=== PATIENT | male | born 1935 | race Caucasian/White ===

== ENCOUNTER 2022-05-21 13:06 | Inpatient (IN) | payer MEDICARE ==
[~2022-05-21] VITALS: Ht 165.1 cm; Wt 89.9 kg
[~2022-05-21 13:06] MED LIST: CEFAZOLIN 1 G VIAL ONE; DEXAMETHASONE SOD PHOSPHATE 4 MG INJ ONE; EPHEDRINE SULFATE 50 MG/ML AMPUL ONE; ETOMIDATE 20 MG/10 ML VIAL ONE; GLYCOPYRROLATE 0.2 MG/ML VIAL ONE; KETOROLAC TROMETHAMINE 30 MG INJ ONE; LIDOCAINE-MPF 2% 5 ML VIAL ONE; NEOSTIGMINE METHYLSULFATE 10 MG/10 ML VIAL ONE; ONDANSETRON 4 MG/2 ML VIAL ONE; PROPOFOL 200 MG/20 ML BOTTLE ONE; SUCCINYLCHOLINE CHLORIDE 200 MG/10 ML VIAL ONE
[2022-05-21] MEDS ORDERED: ONDA4TAB5 PO (13:37)
[2022-05-21] MEDS ORDERED: SERT100T PO (13:37)
[2022-05-21] MEDS ORDERED: CHOL200013 PO (13:37)
[2022-05-21] MEDS ORDERED: VALS1TAB8 PO (13:37)
[2022-05-21] MEDS ORDERED: PANT40TA49 PO (13:37)
[2022-05-21] MEDS ORDERED: PRED1TAB PO (13:37)
[2022-05-21] MEDS ORDERED: APIX5TAB4 PO (13:37)
[2022-05-21] MEDS ORDERED: ZOLP5TAB8 PO (13:37)
[2022-05-21] MEDS ORDERED: ATOR20TA PO (13:37)
[2022-05-21] MEDS ORDERED: CARV25TA2 PO (13:37)
[2022-05-21] MEDS ORDERED: FURO20TA4 PO (13:37)
[2022-05-21] MEDS ORDERED: THIA100T13 PO (13:37)
[2022-05-21] MEDS ORDERED: AMLO10TA59 PO (13:37)
[2022-05-21] MEDS ORDERED: DICLOFENAC GEL TP (13:37)
[2022-05-21] MEDS ORDERED: MULT-213 PO (13:37)
[2022-05-21] MEDS ORDERED: GABA600T12 PO (13:37)
[2022-05-21] MEDS ORDERED: TRAM50TA2 PO (13:37)
[2022-05-21 13:57] LABS: HEMATOCRIT 37.4 % (36.7-47.1); MEAN CORPUSCULAR HEMOGLOBIN 32.6 uug (23.8-33.4); MEAN CORPUSCULAR VOLUME 96.2 fL (73.0-96.2); PLATELET COUNT (AUTO) 137 K/uL (152-348)
[2022-05-21 14:06] LABS: CREATININE 0.8 mg/dL (0.6-1.3)
--- NOTE | 2022-05-21 14:06 | NUR ---
PT IS IN ROOM #2B. DR BRYAN EVALUATED THE PT.
[2022-05-21 14:12] LABS: BILIRUBIN,DIRECT 0.2 mg/dL (0.0-0.2); BILIRUBIN,TOTAL 0.5 mg/dL (0.2-1.0); TOTAL PROTEIN, SERUM 6.3 g/dL (6.4-8.2)
[2022-05-21] MEDS ORDERED: HYDROMORPHONE 1 MG/1 ML DISP.SYRIN IV ONE (15:15)
[2022-05-21] MEDS ORDERED: diphenhydrAMINE 50 MG/1 ML VIAL IV ONE (15:15)
[2022-05-21] MEDS ORDERED: ONDANSETRON 4 MG/2 ML VIAL IV ONE (15:15)
[2022-05-21] MEDS ORDERED: ONDANSETRON 4 MG/2 ML VIAL IV PRN (15:30)
[2022-05-21] MEDS ORDERED: MORPHINE SULFATE 2 MG/1 ML DISP.SYRIN IV PRN (15:30)
[2022-05-21] MEDS ORDERED: REMEDY ESSENTIAL ZINC PASTE 113 GM TP PRN (15:30)
[2022-05-21] MEDS ORDERED: HYDROMORPHONE 1 MG/1 ML DISP.SYRIN ONE (15:38)
[2022-05-21] MEDS ORDERED: diphenhydrAMINE 50 MG/1 ML VIAL ONE (15:40)
[2022-05-21] MEDS ORDERED: ONDANSETRON 4 MG/2 ML VIAL ONE ×3 (15:40→21:01)
[2022-05-21] MEDS ORDERED: LORAZEPAM 2 MG/1 ML VIAL ONE (16:25)
[2022-05-21] MEDS ORDERED: LORAZEPAM 2 MG/1 ML VIAL IV ONE (16:30)
--- NOTE | 2022-05-21 19:30 | NUR ---
Report taken from Alexys. Pt is with Ana Lilia caregiver at the bedside. Airway is patent and speaking in full sentences. Breathing is non-labored. No active bleeding, no obvious cuts or bruising. GCS 15/15 at this time. CApp refill <2 secs. Good pulses on all exts. Skin is warm, pink and dry. PIV on the right upper arm flushed and intact.
[2022-05-21] MEDS ORDERED: VALS320T16 PO (20:47)
[2022-05-21] MEDS ORDERED: MORPHINE SULFATE 2 MG/1 ML DISP.SYRIN ONE (21:00)
[2022-05-21] MEDS ORDERED: MAGNESIUM HYDROXIDE 30 ML LIQUID UDC PO PRN (21:00)
--- NOTE | 2022-05-21 21:00 | NUR ---
Pt begins to be agitated. Medicated with morphine and zofran. Pt refuses skin check even after morphine administration.
[2022-05-21] MEDS: ATORVASTATIN 20 MG TABLET PO SCH (21:04)
[2022-05-22] MEDS ORDERED: ONDANSETRON 4 MG/2 ML VIAL ONE (00:51)
[2022-05-22] MEDS ORDERED: MORPHINE SULFATE 2 MG/1 ML DISP.SYRIN ONE (00:51)
--- NOTE | 2022-05-22 00:51 | NUR ---
late entry: Pt was given Morphine 2mg IVP. Pt is restless and shouting with a very loud voice disrupting the whole unit. Pt has fracture on the right hip. Zofran given as well to prevent vomiting. Remained on NPO for scheduled surgery at 0730 today.
--- NOTE | 2022-05-22 01:59 | NUR ---
Late entry: Asked Dr. Avina to add an additional pain coverage for breakthrough severe pain. Dilaudid 1 mg IVP was given. Pt able to sleep and woke up saying "I didn't know where I am." Kept on O2 support. Pt was snorring and O2 dropped to 90%. Saturation maintained at 93% at 3 LPM via N/C. Pt able to rest and now seem free of pain.
[2022-05-22] MEDS ORDERED: HYDROMORPHONE 1 MG/1 ML DISP.SYRIN ONE (02:09)
[2022-05-22] MEDS ORDERED: HYDROMORPHONE 1 MG/1 ML DISP.SYRIN IV PRN ×2 (02:15→06:45)
[2022-05-22] MEDS ORDERED: KETOROLAC TROMETHAMINE 15 MG INJ IVP ONE (02:15)
[2022-05-22 06:18] LABS: HEMATOCRIT 37.1 % (36.7-47.1); MEAN CORPUSCULAR HEMOGLOBIN 32.8 uug (23.8-33.4); MEAN CORPUSCULAR VOLUME 95.3 fL (73.0-96.2); PLATELET COUNT (AUTO) 131 K/uL (152-348)
--- NOTE | 2022-05-22 06:18 | NUR ---
Report given Betzy/ OR. Mentioned that the son want to get involved and the daughter. JOHNATHAN (SON) [phone] LARRY (DAUGHTER) [phone] Mentioned too that the pt's been taking Eloquis 5mg BID and possibly took a dose yesterday AM. Pt had a fall on their way home from the doctor's office.
[2022-05-22] MEDS ORDERED: BUPIVACAINE 0.25% 30 ML VIAL ONE (06:34)
[2022-05-22] MEDS ORDERED: VANCOMYCIN 1000 MG VIAL ONE (06:34)
--- NOTE | 2022-05-22 07:09 | NUR ---
Pt moved to OR. Endorsed to Betzy the sand pillow of the patient and upper dentures.
[2022-05-22 07:11] LABS: POTASSIUM 4.5 mmol/L (3.5-5.1)
[2022-05-22 07:12] LABS: CARBON DIOXIDE 30 mmol/L (21-32); CHLORIDE 91 mmol/L (98-107); GLUCOSE 106 mg/dL (74-106); UREA NITROGEN, BLOOD 12 mg/dL (7-18)
[2022-05-22 07:13] LABS: CHOLESTEROL 149 mg/dL (<200); CREATININE 0.6 mg/dL (0.6-1.3); MAGNESIUM 1.9 mg/dL (1.8-2.4); TRIGLYCERIDES 112 MG/DL (30-150)
[2022-05-22 07:14] LABS: HDL CHOLESTEROL 56 mg/dL (40-60)
[2022-05-22] MEDS ORDERED: HYDROMORPHONE 2 MG/1 ML DISP.SYRIN ONE (07:36)
[2022-05-22] MEDS ORDERED: ROCURONIUM BROMIDE 50 MG/5 ML VIAL ONE (08:06)
[2022-05-22] MEDS ORDERED: HYDROCHLOROTHIAZIDE 25 MG TABLET PO SCH (09:00)
[2022-05-22] MEDS ORDERED: Medication Not On Formulary EA (Multivitamins W-Minerals (Multivitamin With Minerals) 1 PO SCH (09:00)
[2022-05-22] MEDS ORDERED: Medication Not On Formulary EA (Valsartan/Hydrochlorothiazide (Diovan Hct 320-25 Mg Tabl PO SCH (09:00)
[2022-05-22] MEDS ORDERED: HYDROCODONE/APAP 10-325 MG TABLET PO PRN (10:00)
[2022-05-22] MEDS ORDERED: MORPHINE SULFATE 4 MG/1 ML DISP.SYRIN IV PRN (10:00)
[2022-05-22] MEDS ORDERED: IV D5W-0.45% NS +20 KCL 1,000 ML IV PRN (10:00)
--- NOTE | 2022-05-22 10:45 | NUR ---
[id number] pt from OR, vitals stable. Patient felt a little hot and in pain. Administered morphine. Daughter Ophelia is at bed side.
--- NOTE | 2022-05-22 12:00 | NUR ---
Patient is asleep. No distress no pain noted
[2022-05-22] MEDS: MULTIVIT, IRON, MIN NO. 8, FA TABLET PO SCH (14:07)
[2022-05-22] MEDS: THIAMINE HCL 100 MG TABLET PO SCH (14:07)
[2022-05-22] MEDS: GABAPENTIN 300 MG CAPSULE PO SCH ×2 (14:07→21:35)
[2022-05-22] MEDS: PANTOPRAZOLE SODIUM 40 MG TABLET.DR PO SCH (14:07)
[2022-05-22] MEDS: SERTRALINE HCL 100 MG TABLET PO SCH (14:07)
[2022-05-22] MEDS: AMLODIPINE 10 MG TABLET PO SCH (14:14)
[2022-05-22] MEDS: VALSARTAN 160 MG TABLET PO SCH (14:15)
[2022-05-22] MEDS: CARVEDILOL 25 MG TABLET PO SCH ×2 (14:16→21:36)
[2022-05-22] MEDS: predniSONE 1 MG TABLET PO SCH (14:18)
--- NOTE | 2022-05-22 14:30 | NUR ---
patient's dressing on his surgical site where the carlie are was bleeding, dressing was saturated with blood. I changed the optifoam dressing, surgical site stopped bleeding. Patient is not in distress or pain. Asked for some ice chips. Said he feel ok.
[2022-05-22] MEDS: CEFAZOLIN 1 G in IV DEXTROSE 5% 50 ML IV SCH (16:13)
[2022-05-22 20:41] VITALS: BP 122/70
[2022-05-22] MEDS: ZOLPIDEM 5 MG TABLET PO PRN (21:35)
[2022-05-22] MEDS: TRAMADOL HCL 50 MG TABLET PO PRN (21:35)
[2022-05-22] MEDS: ATORVASTATIN 20 MG TABLET PO SCH (21:36)
[2022-05-23] MEDS ORDERED: CEFAZOLIN 1 G VIAL ONE (00:25)
[2022-05-23] MEDS: CEFAZOLIN 1 G in IV DEXTROSE 5% 50 ML IV SCH (00:40)
[2022-05-23 00:46] VITALS: BP 106/60
[2022-05-23 04:45] VITALS: BP 128/56
--- NOTE | 2022-05-23 05:00 | NUR ---
DRESSING OF SURGICAL SITE SATURATED WITH BLOOD. APPLIED PRESSURE DRESSING. PATIENT NOT IN DISTRESS. WILL CONTINUE TO MONITOR.
[2022-05-23] MEDS: PANTOPRAZOLE SODIUM 40 MG TABLET.DR PO SCH (06:09)
--- NOTE | 2022-05-23 06:15 | NUR ---
PT HAS DISTENDED BLADDER. NO URINE NOTED. BLADDER SCAN DONE. NOTED 800 ML. IN & OUT CATH DONE ASEPTICALLY. ABLE TO GET 1000 ML OF CLEAR URINE. TOLERATED WELL. ALL NEEDS ATTENDED. WILL ENDORSE TO INCOMING SHIFT.
[2022-05-23 06:18] LABS: MEAN CORPUSCULAR HEMOGLOBIN 32.4 uug (23.8-33.4); MEAN CORPUSCULAR VOLUME 94.7 fL (73.0-96.2); PLATELET COUNT (AUTO) 83 K/uL (152-348)
--- NOTE | 2022-05-23 08:00 | NUR ---
AWAKE ALERT AND VERBALLY RESPONSIVE, [place]ILTON BILATERALLY. DENIES SOB. CONTINUE WITH PAIN MANAGEMENT ORDERED.
[2022-05-23 08:13] LABS: LYMPHOCYTES % (MANUAL) 16 % (20-40); MONOCYTES % (MANUAL) 4 % (2-10); NEUTROPHILS % (MANUAL) 80 % (42-75)
[2022-05-23 08:46] LABS: MAGNESIUM 2.1 mg/dL (1.8-2.4); POTASSIUM 4.8 mmol/L (3.5-5.1)
[2022-05-23] MEDS: AMLODIPINE 10 MG TABLET PO SCH (09:00)
[2022-05-23] MEDS: CARVEDILOL 25 MG TABLET PO SCH ×2 (09:00→17:17)
[2022-05-23] MEDS: VALSARTAN 160 MG TABLET PO SCH (09:00)
[2022-05-23] MEDS: TRAMADOL HCL 50 MG TABLET PO PRN ×2 (09:11→22:40)
[2022-05-23] MEDS: predniSONE 1 MG TABLET PO SCH (09:11)
[2022-05-23] MEDS: THIAMINE HCL 100 MG TABLET PO SCH (09:11)
[2022-05-23] MEDS: MULTIVIT, IRON, MIN NO. 8, FA TABLET PO SCH (09:11)
[2022-05-23] MEDS: SERTRALINE HCL 100 MG TABLET PO SCH (09:11)
[2022-05-23] MEDS: GABAPENTIN 300 MG CAPSULE PO SCH ×2 (09:11→17:16)
--- NOTE | 2022-05-23 10:00 | NUR ---
SEEN BY TOW MOTOR MECHANIC AND CHANGE STATUE TO MED/SURG
[2022-05-23 11:58] VITALS: BP 98/50
--- NOTE | 2022-05-23 12:00 | NUR ---
NO ACUTE CHANGE FROM MORNING ASSESSMENT
--- NOTE | 2022-05-23 13:30 | NUR ---
SEEN BY HOSPITALIST FOR FOLLOW-UP SEE NOTES
[2022-05-23 17:12] VITALS: BP 106/50
--- NOTE | 2022-05-23 18:30 | NUR ---
RIGHT HIP INCISION MARKEDLY BRUISE WITH MODERATE AMOUNT OF BLEEDING AND CLOTTED BLOOD NOTED. CUAUHTEMOC INTACT AND WELL APPROXIMATED, DRESSING CHANGED. PEDAL PULSES REMAINS VERY PALPABLE. AFEBRILE
--- NOTE | 2022-05-23 19:05 | NUR ---
Report taken from VERONICA Dexter. A>Aiway is patent, pt is speaking in full sentences. B>Breathing is even, symmetrical chest rise. Maintaining saturation at 93% on 3LPM of O2 via n/c. C>No c/o CP. Pt is drinking well, maintaining a good output through a f/c. Pt has been retaining urine per AM RN with 1000ml on bladder vesna. Good peripheral pulses. Skin warm, pink and dry. Pt has pacemaker.HR in the 60s. Blood pressure is 105/49. D>GCS 15/15. Remained alert, oriented x3. E>F/C draining well with yellow urine. Right hip surgical wound with clean and dry dressing. Right elbow abrasion dry and left open to air. Right knee abrasion with clean and dry dressing. Pressure ulcer areas clear. Afebrile.
--- NOTE | 2022-05-23 19:30 | NUR ---
Pt is hard of hearing. Has hearing aid at the bedside.
[2022-05-23] MEDS: ATORVASTATIN 20 MG TABLET PO SCH (21:00)
[2022-05-23 22:00] VITALS: BP 105/49
[2022-05-23] MEDS: ZOLPIDEM 5 MG TABLET PO PRN (22:43)
[2022-05-24] VITALS (9 sets, daily range): BP systolic 95–118; BP diastolic 34–62
[2022-05-24] MEDS: PANTOPRAZOLE SODIUM 40 MG TABLET.DR PO SCH (06:00)
[2022-05-24 06:50] LABS: HEMATOCRIT 22.2 % (36.7-47.1); MEAN CORPUSCULAR HEMOGLOBIN 32.7 uug (23.8-33.4); MEAN CORPUSCULAR VOLUME 95.3 fL (73.0-96.2); PLATELET COUNT (AUTO) 86 K/uL (152-348)
[2022-05-24 07:09] LABS: THYROID STIMULATING HORMONE 1.097 mIU/mL (0.358-3.740)
--- NOTE | 2022-05-24 07:20 | NUR ---
report given to Fabi. Mentioned that pt may need urology consult for inactive bladder/ urinary retention.
--- NOTE | 2022-05-24 07:35 | NUR ---
Also endorsed to Fabi to f/u Physical therapy today.
[2022-05-24 07:41] LABS: CARBON DIOXIDE 26 mmol/L (21-32); CHLORIDE 88 mmol/L (98-107); CREATININE 1.5 mg/dL (0.6-1.3); GLUCOSE 104 mg/dL (74-106); MAGNESIUM 2.3 mg/dL (1.8-2.4); PHOSPHOROUS 5.4 mg/dL (2.5-4.9); POTASSIUM 4.8 mmol/L (3.5-5.1); UREA NITROGEN, BLOOD 39 mg/dL (7-18)
[2022-05-24] MEDS: MULTIVIT, IRON, MIN NO. 8, FA TABLET PO SCH (08:07)
[2022-05-24] MEDS: SERTRALINE HCL 100 MG TABLET PO SCH (08:07)
[2022-05-24] MEDS: GABAPENTIN 300 MG CAPSULE PO SCH ×2 (08:07→16:05)
[2022-05-24] MEDS: CARVEDILOL 25 MG TABLET PO SCH ×2 (08:07→16:01)
[2022-05-24] MEDS: THIAMINE HCL 100 MG TABLET PO SCH (08:07)
[2022-05-24] MEDS: predniSONE 1 MG TABLET PO SCH (08:40)
--- NOTE | 2022-05-24 09:20 | NUR ---
while pt was getting out of bed with physical therapy ,active bleeding noted at the surgical site md and charge nurse notified ,new orders received noted and carried out
[2022-05-24] MEDS ORDERED: TRANEXAMIC ACID 1,000 MG/10 ML VIAL IV ONE (09:30)
--- NOTE | 2022-05-24 09:50 | NUR ---
surgical site dressing change per md orders
[2022-05-24] MEDS ORDERED: TRANEXAMIC ACID IV ONE (10:00)
[2022-05-24] MEDS ORDERED: NORMAL SALINE IV ONE (10:00)
[2022-05-24 10:15] LABS: HEMATOCRIT 22.4 % (36.7-47.1)
--- NOTE | 2022-05-24 15:01 | NUR ---
one unit of prbc given without any adverse reaction vs are stable
[2022-05-24] MEDS: TRAMADOL HCL 50 MG TABLET PO PRN (16:33)
[2022-05-24 17:21] LABS: HEMATOCRIT 24.6 % (36.7-47.1)
[2022-05-24] MEDS: ATORVASTATIN 20 MG TABLET PO SCH (20:27)
[2022-05-24] MEDS: ZOLPIDEM 5 MG TABLET PO PRN (20:45)
[2022-05-25 04:00] VITALS: BP 138/53
[2022-05-25 06:09] LABS: HEMATOCRIT 22.4 % (36.7-47.1); MEAN CORPUSCULAR HEMOGLOBIN 32.1 uug (23.8-33.4); MEAN CORPUSCULAR VOLUME 94.5 fL (73.0-96.2); PLATELET COUNT (AUTO) 93 K/uL (152-348)
[2022-05-25 06:15] LABS: CREATININE 0.9 mg/dL (0.6-1.3); MAGNESIUM 2.4 mg/dL (1.8-2.4); POTASSIUM 4.8 mmol/L (3.5-5.1)
[2022-05-25] MEDS: PANTOPRAZOLE SODIUM 40 MG TABLET.DR PO SCH (06:39)
--- NOTE | 2022-05-25 07:00 | NUR ---
AWAKE ALERT AND VERBALLY RESPONSIVE, [place] BILATERALLY. DENIES SOB. call light with in reach
[2022-05-25 08:12] LABS: *BILIRUBIN,URIN NEGATIVE (NEGATIVE); *BLOOD, URINE 2+ (NEGATIVE); *COLOR,URINE YELLOW (YELLOW); *KETONES,URINE NEGATIVE (NEGATIVE); *UROBILINOGEN,URINE 0.2 E.U./dl (NORMAL); LEUKOCYTE ESTERASE ,URINE NEGATIVE (NEGATIVE); NITRITE, URINE NEGATIVE (NEGATIVE); PH,URINE 5.5 (5.0-8.0); UGLUCOSE NEGATIVE (NEGATIVE)
[2022-05-25] MEDS: THIAMINE HCL 100 MG TABLET PO SCH (08:13)
[2022-05-25] MEDS: TRAMADOL HCL 50 MG TABLET PO PRN ×3 (08:13→22:30)
[2022-05-25] MEDS: predniSONE 1 MG TABLET PO SCH (08:13)
[2022-05-25] MEDS: GABAPENTIN 300 MG CAPSULE PO SCH ×2 (08:13→16:10)
[2022-05-25] MEDS: MULTIVIT, IRON, MIN NO. 8, FA TABLET PO SCH (08:13)
[2022-05-25] MEDS: SERTRALINE HCL 100 MG TABLET PO SCH (08:13)
[2022-05-25 08:29] LABS: WBC,URINE 0-3 /HPF (0-3)
[2022-05-25 08:30] LABS: BACTERIA,URINE NONE SEEN /HPF (NONE SEEN); SQUAMOUS EPITHELIAL CELL,UR FEW /HPF (NONE SEEN)
[2022-05-25] MEDS: CARVEDILOL 25 MG TABLET PO SCH ×2 (08:58→16:10)
[2022-05-25 09:30] VITALS: BP 131/53
--- NOTE | 2022-05-25 09:45 | NUR ---
pt daughter came to the nursing station and standing there and suddenly start screaming to the staff and shying my dad iis uncomfortable and you guys are ignoring me try to explain to her you did not say anything and ask help how we know you are there she start screaming again charge nurse and case briefer and nursing pest control supervisor made aware
--- NOTE | 2022-05-25 10:20 | NUR ---
went to pt room with brennon daughter is bed side still screaming and yelling on us try to explain to her she refused to here anything
[2022-05-25] MEDS ORDERED: methylPREDNISolone SOD SUCC 40 MG/ML VIAL IV SCH (10:30)
[2022-05-25] MEDS: methylPREDNISolone SOD SUCC 40 MG/ML VIAL IV SCH ×2 (10:39→21:00)
--- NOTE | 2022-05-25 11:20 | NUR ---
SEEN BY HOSPITALIST new orders received noted and carried out
[2022-05-25 11:52] VITALS: BP 120/44
[2022-05-25] MEDS: FUROSEMIDE 40 MG/4 ML VIAL IV SCH (13:16)
[2022-05-25] MEDS ORDERED: BISACODYL 10 MG SUPP.RECT RC PRN (13:30)
--- NOTE | 2022-05-25 14:29 | NUR ---
pt did not urinate did the bladder scan per md orders per bladder scans pt is retaining 465 ml urine md notified
[2022-05-25] MEDS: DOCUSATE SODIUM 100 MG CAPSULE PO SCH ×2 (14:33→21:00)
--- NOTE | 2022-05-25 15:03 | NUR ---
insert folly catheter per md orders
[2022-05-25 16:18] VITALS: BP 132/47
[2022-05-25] MEDS ORDERED: CEFTRIAXONE 1 G VIAL IV SCH (17:00)
[2022-05-25] MEDS: CEFTRIAXONE 1 G in IV DEXTROSE 5% 50 ML IV SCH (17:11)
--- NOTE | 2022-05-25 19:30 | NUR ---
Report taken from Fabi. Pt is alert, oriented. laceworker/ family friend at the bedside. Kept pt comfortable. No acute bleeding. No respiratory distress. Pt able to reach out to the head board and pull himself up when placed flat on his back. f/c draining well. Remained on 3 LPM via n/c.
--- NOTE | 2022-05-25 19:30 | NUR ---
Bethanie turned pt to left side. Friend Cecille at the bedside and was pleased. Call light within reach, TV remote and celphone.
[2022-05-25 20:00] VITALS: BP 118/54
[2022-05-25 20:15] VITALS: BP 118/54
[2022-05-25] MEDS: SENNOSIDES 1 TABLET PO SCH (21:00)
[2022-05-25] MEDS: ATORVASTATIN 20 MG TABLET PO SCH (21:00)
--- NOTE | 2022-05-25 21:00 | NUR ---
Pt repositioned and gave clean linens.
[2022-05-25] MEDS: ZOLPIDEM 5 MG TABLET PO PRN (22:41)
--- NOTE | 2022-05-25 22:53 | NUR ---
Daughter Ophelia called and giving this nurse an attitude. Told the family that if she's going to take that rude tone, this nurse will hang up the phone and told her that we have zero tolerance for abuse.
--- NOTE | 2022-05-25 23:57 | NUR ---
Pt has been trying to get out of bed multiple times and denying that he's got all of his medication. VERONICA Banks helped explain to the pt that he's got all meds and he's not allowed to get out of bed. Repositioned pt 5x.
--- NOTE | 2022-05-26 00:36 | NUR ---
Unable to administer blood at this time. Pt is unconsolable. He is severely restless, shouting and rude. Pt seen by melt house supervisor climbing out of bed for the 7th time.
[2022-05-26] MEDS: HYDROMORPHONE 1 MG/1 ML DISP.SYRIN IV PRN ×2 (01:29→21:19)
--- NOTE | 2022-05-26 01:32 | NUR ---
Pt has been refusing and said that he doesn't need blood. Dilaudid 0.25mg IVP given.
--- NOTE | 2022-05-26 02:40 | NUR ---
pt remained agitated, restless and shouting. He's trying to remove medical devices such as IV and keita catheter. Messaged fire prevention forester hospitalist for Benadryl 25mg IVP to help pt calm down and able to finish blood transfusion. okayed temporary soft restraints while administering PRBCs.
[2022-05-26 03:00] VITALS: BP 160/83
[2022-05-26] MEDS ORDERED: diphenhydrAMINE 50 MG/1 ML VIAL IV ONE (03:00)
--- NOTE | 2022-05-26 03:00 | NUR ---
Started administration of PRBC via right upper arm midline. V/S stable. Benadryl was given and implemented the soft restraints while pt is receiving blood transfusion.
--- NOTE | 2022-05-26 03:00 | NUR ---
Sat at the door of the patient the entire shift. newscast director hospitalist approved the clinical justification for the use of restraint. Pt's attempting to pull lines medically necessary for treatment. Pt is non-compliant to safety instructions. Applied soft restraints on bilateral arms during the entire administration of PRBC. Visual checks q15 mins done. Monitored skin and circulation. Alternatives to restraint deployed and pt cant contract for safety. He keeps on getting out of bed.
[2022-05-26 03:15] VITALS: BP 146/59
[2022-05-26 03:38] VITALS: BP 135/53
--- NOTE | 2022-05-26 03:47 | NUR ---
Pt still awake talking incessantly to no one.
--- NOTE | 2022-05-26 05:25 | NUR ---
Pt finished his PRBC transfusion with no adverse reaction or events.
[2022-05-26] MEDS: PANTOPRAZOLE SODIUM 40 MG TABLET.DR PO SCH (06:16)
--- NOTE | 2022-05-26 07:48 | NUR ---
Report to Lia and ask to follow up the H & H after 2 hours of transfusion (ended at 0525 today), as well as the pt's wedge pillow order.
[2022-05-26] MEDS: FUROSEMIDE 40 MG/4 ML VIAL IV SCH ×3 (08:15→21:08)
[2022-05-26] MEDS: methylPREDNISolone SOD SUCC 40 MG/ML VIAL IV SCH (08:15)
[2022-05-26] MEDS: SERTRALINE HCL 100 MG TABLET PO SCH (08:15)
[2022-05-26] MEDS: MULTIVIT, IRON, MIN NO. 8, FA TABLET PO SCH (08:16)
[2022-05-26] MEDS: THIAMINE HCL 100 MG TABLET PO SCH (08:16)
[2022-05-26] MEDS: GABAPENTIN 300 MG CAPSULE PO SCH ×2 (08:16→17:09)
[2022-05-26] MEDS: CARVEDILOL 25 MG TABLET PO SCH ×2 (08:26→17:15)
[2022-05-26 08:58] LABS: HEMATOCRIT 26.4 % (36.7-47.1); MEAN CORPUSCULAR HEMOGLOBIN 31.2 uug (23.8-33.4); MEAN CORPUSCULAR VOLUME 90.5 fL (73.0-96.2); PLATELET COUNT (AUTO) 164 K/uL (152-348)
[2022-05-26 09:10] LABS: MAGNESIUM 2.4 mg/dL (1.8-2.4); PHOSPHOROUS 3.8 mg/dL (2.5-4.9); POTASSIUM 5.7 mmol/L (3.5-5.1)
[2022-05-26] MEDS: predniSONE 1 MG TABLET PO SCH (10:21)
[2022-05-26] MEDS ORDERED: INSULIN REGULAR, HUMAN 300 UNIT/3 ML VIAL IV ONE (11:00)
[2022-05-26] MEDS ORDERED: DEXTROSE 50% 50 ML DISP.SYRIN IV ONE (11:00)
[2022-05-26 11:50] VITALS: BP 132/54
--- NOTE | 2022-05-26 13:33 | NUR ---
Patient is stable at the moment, vitals are stable, patient is with a sitter 1:1 who fed him lunch. Patient is in no pain or distress. He got his Dextrose IV inj and 10 unit insulin (once), his BS was 140 at the moment. After I rechecked his BS in one hour his BS got 209.
[2022-05-26] MEDS: GLUCERNA SHAKE 237 ML CAN PO SCH ×2 (14:39→17:15)
--- NOTE | 2022-05-26 15:05 | NUR ---
Spoke to Ophelia (pt's daughter) on the phone regarding patient's code status. She confirmed patient's wishes regarding DNR-DNI status.
[2022-05-26 15:17] VITALS: BP 132/53
[2022-05-26] MEDS: LISINOPRIL 10 MG TABLET PO SCH (15:22)
[2022-05-26] MEDS: CEFTRIAXONE 1 G in IV DEXTROSE 5% 50 ML IV SCH (17:08)
--- NOTE | 2022-05-26 18:48 | NUR ---
Patient didn't have pain all day, son Calos came to visit at [facility], patient's lab values improved, h/h: 9.1 and hct 26.4. No bleeding at the surgical site. Patient ate good, 75% of his dinner. No complains.
--- NOTE | 2022-05-26 19:30 | NUR ---
Received patient lying in bed. AAOx2-3. In no apparent distress. Denies any pain or SOB at this time. O2 sat at 98% on O2 at 4LPM via NC in place. Right hip with dressing intact. Midline on right upper arm intact and patent. Mandel catheter intact and draining via gravity. Needs assessed and attended to. Safety measure initiated and call light within reached.
[2022-05-26 20:00] VITALS: BP 120/47
[2022-05-26] MEDS ORDERED: methylPREDNISolone SOD SUCC 40 MG/ML VIAL IV SCH (21:00)
[2022-05-26] MEDS: TAMSULOSIN HCL 0.4 MG CAP.SR.24H PO SCH (21:07)
[2022-05-26] MEDS: ATORVASTATIN 20 MG TABLET PO SCH (21:07)
[2022-05-26] MEDS: SENNOSIDES 1 TABLET PO SCH (21:08)
[2022-05-26] MEDS: DOCUSATE SODIUM 100 MG CAPSULE PO SCH (21:08)
[2022-05-26] MEDS: GUAIFENESIN LA 600 MG TABLET.SA PO SCH (21:08)
[2022-05-26] MEDS ORDERED: FUROSEMIDE 40 MG/4 ML VIAL IV ONE (21:15)
[2022-05-26] MEDS ORDERED: IPRATROPIUM BROMIDE 0.5 MG/2.5 ML NEBU NEB PRN (21:30)
[2022-05-26] MEDS ORDERED: ALBUTEROL SULFATE 2.5 MG/3 ML NEBU IH PRN (21:30)
--- NOTE | 2022-05-26 21:30 | NUR ---
Noted an order of Lasix 40mg IV once per OIL WELL LOGGER Radhika. Patient already has Lasix 40mg IV order BID. Informed Wilstein and ordered to hold one time Lasix does. order noted and will carry out.
[2022-05-26] MEDS ORDERED: PIPERACILLIN SODIUM/TAZOBACTAM 3.375 G in IV DEXTROSE 5% 50 ML IV SCH (22:00)
[2022-05-26] MEDS ORDERED: PIPERACILLIN/TAZOBACTAM/D5W 50 ML IV ONE ×2 (22:01)
[2022-05-26] MEDS: PIPERACILLIN SODIUM/TAZOBACTAM 3.375 G in IV DEXTROSE 5% 50 ML IV SCH (22:10)
[2022-05-26 23:16] LABS: *BILIRUBIN,URIN NEGATIVE (NEGATIVE); *CLARITY,URINE CLEAR (CLEAR); *COLOR,URINE YELLOW (YELLOW); *KETONES,URINE NEGATIVE (NEGATIVE); *UROBILINOGEN,URINE 0.2 E.U./dl (NORMAL); LEUKOCYTE ESTERASE ,URINE 1+ (NEGATIVE); NITRITE, URINE NEGATIVE (NEGATIVE); PH,URINE 5.5 (5.0-8.0); UGLUCOSE NEGATIVE (NEGATIVE)
[2022-05-26 23:18] LABS: *BLOOD, URINE TRACE (NEGATIVE)
[2022-05-26 23:23] LABS: RBC,URINE 0-3 /HPF (0-3)
[2022-05-26 23:24] LABS: BACTERIA,URINE FEW /HPF (NONE SEEN); SQUAMOUS EPITHELIAL CELL,UR FEW /HPF (NONE SEEN); URIC ACID CRYSTALS,URINE MODERATE /HPF (NONE SEEN)
[2022-05-27 04:29] VITALS: BP 118/56
[2022-05-27] MEDS: PIPERACILLIN SODIUM/TAZOBACTAM 3.375 G in IV DEXTROSE 5% 50 ML IV SCH (05:00)
[2022-05-27] MEDS: HYDROMORPHONE 1 MG/1 ML DISP.SYRIN IV PRN (05:05)
[2022-05-27] MEDS: PANTOPRAZOLE SODIUM 40 MG TABLET.DR PO SCH (06:12)
[2022-05-27] MEDS: ACETAMINOPHEN 325 MG TABLET PO PRN (06:15)
--- NOTE | 2022-05-27 06:29 | NUR ---
Patient AAox2-3 with periods of confusion and forgetful. Dilaudid 0.25mg via IV given every 4 hours PRN for complain of pain. O2 at 3LPM via NC in place. O2 sat at 94%. Denies any SOB. No adverse reaction noted from IV antibiotic. Mandel catheter intact and draining via gravity. Needs attended to and met. Safety measure maintained.
[2022-05-27 07:07] LABS: HEMATOCRIT 26.8 % (36.7-47.1); MEAN CORPUSCULAR HEMOGLOBIN 31.3 uug (23.8-33.4); MEAN CORPUSCULAR VOLUME 90.8 fL (73.0-96.2); PLATELET COUNT (AUTO) 163 K/uL (152-348)
[2022-05-27 07:27] LABS: MAGNESIUM 2.1 mg/dL (1.8-2.4); PHOSPHOROUS 4.3 mg/dL (2.5-4.9)
[2022-05-27] MEDS: GLUCERNA SHAKE 237 ML CAN PO SCH ×3 (08:23→17:55)
[2022-05-27 09:00] VITALS: BP 132/59
[2022-05-27] MEDS ORDERED: methylPREDNISolone SOD SUCC 40 MG/ML VIAL IV SCH (09:00)
[2022-05-27] MEDS: MULTIVIT, IRON, MIN NO. 8, FA TABLET PO SCH (09:04)
[2022-05-27] MEDS: TAMSULOSIN HCL 0.4 MG CAP.SR.24H PO SCH ×2 (09:04→20:37)
[2022-05-27] MEDS: GABAPENTIN 300 MG CAPSULE PO SCH ×2 (09:04→17:55)
[2022-05-27] MEDS: THIAMINE HCL 100 MG TABLET PO SCH (09:04)
[2022-05-27] MEDS: SERTRALINE HCL 100 MG TABLET PO SCH (09:04)
[2022-05-27] MEDS: GUAIFENESIN LA 600 MG TABLET.SA PO SCH ×2 (09:04→20:37)
[2022-05-27] MEDS: LISINOPRIL 10 MG TABLET PO SCH (09:05)
[2022-05-27] MEDS: CARVEDILOL 25 MG TABLET PO SCH ×2 (09:05→17:00)
[2022-05-27] MEDS: FUROSEMIDE 40 MG/4 ML VIAL IV SCH ×2 (09:05→17:00)
[2022-05-27] MEDS: predniSONE 1 MG TABLET PO SCH (09:06)
[2022-05-27] MEDS: methylPREDNISolone SOD SUCC 40 MG/ML VIAL IV SCH (09:13)
[2022-05-27] MEDS: TRAMADOL HCL 50 MG TABLET PO PRN ×3 (09:14→19:22)
[2022-05-27 11:00] VITALS: BP 96/44
[2022-05-27] MEDS: PIPERACILLIN SODIUM/TAZOBACTAM 3.375 G in IV DEXTROSE 5% 100 ML IV SCH ×2 (13:29→21:34)
--- NOTE | 2022-05-27 13:41 | NUR ---
Pt is a/o x 3-4, no signs of confusion at this time. Pt is coherent of conversation and able to verbalize needs and concerns. Keita catheter removed; will monitor urine output. 1300 removed from keita. if no urination within 6 hrs, will do a bladder scan and notify MD.
[2022-05-27 15:35] VITALS: BP 103/39
--- NOTE | 2022-05-27 19:35 | NUR ---
Patient alert oriented, no sob no chest pain, no complain of pain, left hip dressing intact, abdomen soft, monitor bladder eliminations. kept comfortable, patient using IS, tolerate well, encouraged not to drink too much water due health condition, cont to monitor.
[2022-05-27 20:00] VITALS: BP 133/59
[2022-05-27] MEDS: DOCUSATE SODIUM 100 MG CAPSULE PO SCH (20:36)
[2022-05-27] MEDS: ATORVASTATIN 20 MG TABLET PO SCH (20:37)
[2022-05-27] MEDS: SENNOSIDES 1 TABLET PO SCH (20:37)
--- NOTE | 2022-05-27 22:00 | NUR ---
Patient noted no urine, encouraged to urinate in the urinal but unable, bladder scanned the patient with 557 cc on the bladder. Bina Garrido PCI SECURITY CONSULTANT had an verbal order if patient do not urinate for [address] back the indwelling cath.
--- NOTE | 2022-05-27 22:12 | NUR ---
Patient alert oriented, no sob no chest pain, no complain of pain, patient not pulling iv or oxygen, D/C acute medical restraints.
[2022-05-28] MEDS: ACETAMINOPHEN 325 MG TABLET PO PRN (03:24)
[2022-05-28 04:00] VITALS: BP 150/52
[2022-05-28] MEDS: PIPERACILLIN SODIUM/TAZOBACTAM 3.375 G in IV DEXTROSE 5% 100 ML IV SCH ×3 (05:27→22:47)
[2022-05-28] MEDS: PANTOPRAZOLE SODIUM 40 MG TABLET.DR PO SCH (06:25)
[2022-05-28 07:09] LABS: HEMATOCRIT 25.4 % (36.7-47.1); MEAN CORPUSCULAR VOLUME 91.2 fL (73.0-96.2); PLATELET COUNT (AUTO) 151 K/uL (152-348)
[2022-05-28 07:51] LABS: CREATININE 0.9 mg/dL (0.6-1.3); MAGNESIUM 1.9 mg/dL (1.8-2.4); PHOSPHOROUS 2.8 mg/dL (2.5-4.9)
[2022-05-28] MEDS: LISINOPRIL 10 MG TABLET PO SCH (09:00)
[2022-05-28] MEDS: CARVEDILOL 25 MG TABLET PO SCH ×2 (09:00→17:00)
[2022-05-28] MEDS: FUROSEMIDE 40 MG/4 ML VIAL IV SCH (09:00)
[2022-05-28] MEDS: GLUCERNA SHAKE 237 ML CAN PO SCH ×3 (10:17→17:27)
[2022-05-28] MEDS: SERTRALINE HCL 100 MG TABLET PO SCH (10:18)
[2022-05-28] MEDS: methylPREDNISolone SOD SUCC 40 MG/ML VIAL IV SCH (10:18)
[2022-05-28] MEDS: THIAMINE HCL 100 MG TABLET PO SCH (10:18)
[2022-05-28] MEDS: TAMSULOSIN HCL 0.4 MG CAP.SR.24H PO SCH ×2 (10:19→22:44)
[2022-05-28] MEDS: MULTIVIT, IRON, MIN NO. 8, FA TABLET PO SCH (10:19)
[2022-05-28] MEDS: GABAPENTIN 300 MG CAPSULE PO SCH ×2 (10:19→17:27)
[2022-05-28] MEDS: TRAMADOL HCL 50 MG TABLET PO PRN (10:19)
[2022-05-28] MEDS: GUAIFENESIN LA 600 MG TABLET.SA PO SCH ×2 (10:19→22:43)
[2022-05-28] MEDS: predniSONE 1 MG TABLET PO SCH (10:20)
[2022-05-28 12:46] VITALS: BP 107/46
--- NOTE | 2022-05-28 20:00 | NUR ---
Patient in bed, no sob no chest pain, no complain of pain, keita cath patent draining with yellow color urine in moderate amount. Patient r hip dressing intact, patient has multiple bruises on upper and lower arm since upon admission, patient dinner tray was taken away, left his cake at patient table. cont to monitor.
[2022-05-28 20:39] VITALS: BP 120/52
--- NOTE | 2022-05-28 21:15 | NUR ---
Patient called, and ask for water, given water with little ice. Patient wanted to know about his keita cath, and told patient that keita is fine, draining well, patient has no complain of pain at this time, electric fan is on, call light within reach, Patient refused to turn side by side. prefer to stay on his back, no new skin breakdown noted, patient upper arms and lower extremity has old bruises different stage of healing which present on admission, patient refused to elevate his heels on pillow, get easily angry/agitated when tries to educate about preservation of skin
[2022-05-28] MEDS: DOCUSATE SODIUM 100 MG CAPSULE PO SCH (22:43)
[2022-05-28] MEDS: SENNOSIDES 1 TABLET PO SCH (22:43)
[2022-05-28] MEDS: ATORVASTATIN 20 MG TABLET PO SCH (22:44)
[2022-05-29 04:18] VITALS: BP 140/56
[2022-05-29] MEDS: PIPERACILLIN SODIUM/TAZOBACTAM 3.375 G in IV DEXTROSE 5% 100 ML IV SCH ×2 (05:56→15:06)
[2022-05-29 06:35] LABS: MEAN CORPUSCULAR HEMOGLOBIN 31.4 uug (23.8-33.4); PLATELET COUNT (AUTO) 165 K/uL (152-348)
[2022-05-29 06:43] LABS: CREATININE 0.8 mg/dL (0.6-1.3); PHOSPHOROUS 3.3 mg/dL (2.5-4.9); POTASSIUM 3.9 mmol/L (3.5-5.1)
[2022-05-29] MEDS: PANTOPRAZOLE SODIUM 40 MG TABLET.DR PO SCH (07:21)
[2022-05-29] MEDS: CARVEDILOL 25 MG TABLET PO SCH (09:00)
[2022-05-29] MEDS: methylPREDNISolone SOD SUCC 40 MG/ML VIAL IV SCH (10:03)
[2022-05-29] MEDS: MULTIVIT, IRON, MIN NO. 8, FA TABLET PO SCH (10:03)
[2022-05-29] MEDS: TAMSULOSIN HCL 0.4 MG CAP.SR.24H PO SCH (10:03)
[2022-05-29] MEDS: SERTRALINE HCL 100 MG TABLET PO SCH (10:04)
[2022-05-29] MEDS: GUAIFENESIN LA 600 MG TABLET.SA PO SCH (10:04)
[2022-05-29] MEDS: predniSONE 1 MG TABLET PO SCH (10:04)
[2022-05-29] MEDS: GABAPENTIN 300 MG CAPSULE PO SCH (10:04)
[2022-05-29] MEDS: THIAMINE HCL 100 MG TABLET PO SCH (10:04)
[2022-05-29] MEDS: GLUCERNA SHAKE 237 ML CAN PO SCH ×2 (10:05→12:24)
[2022-05-29] MEDS ORDERED: TAMS-3 PO (12:32)
[2022-05-29] MEDS ORDERED: LEVO500T90 PO (12:32)
[2022-05-29] MEDS ORDERED: SENN-175 PO (12:32)
[2022-05-29] MEDS ORDERED: DOCU-141 PO (12:32)
[2022-05-29] MEDS ORDERED: BISA10SU12 RC (12:32)
--- NOTE | 2022-05-29 14:41 | NUR ---
Pt is a/o x 3-4 no complaint of shortness of breath at this time. Pt is being discharged to [facility], family and pt aware and agreeable. Report called and given to Dillon MARTIN. Pt is accepted to room 47B, curing pickling packer scheduled with [facility] ambulance for 1529.
[2022-05-29 16:40] VITALS: BP 103/61
--- NOTE | 2022-05-29 17:00 | NUR ---
Pt discharge plans changed, family appealed [facility]. Pt now discharged to [facility] with keita catheter in place. Pt will have bladder training and PT at facility. Called and gave report to Mary MARTIN at ; pt accepted to room 404-B. All personal belongings taken by Family friend at bedside Farrah. She will be meeting pt at facility to give his belongings to him and get him settled. Vitals stable on room air. No signs of acute distress.
== END 2022-05-29 17:00 | DRG 480 ==
LOC: ER 13:06 → TRANSITION 20:39 → MEDSURG3 05-22 06:06 → TELE3 05-22 10:50 → MEDSURG3 05-23 10:33
PROVIDERS: ADMIT Nurse Practitioner Family; ATTEND Nurse Practitioner Acute Care
PROC: 0QS606Z Reposition Right Upper Femur with Intramedullary Internal Fixation Device, Open Approach (ICD-10-PCS; principal; 2022-05-22)
PROC: 05H633Z Insertion of Infusion Device into Left Subclavian Vein, Percutaneous Approach (ICD-10-PCS; 2022-05-24)
PROC: B547ZZA Ultrasonography of Left Subclavian Vein, Guidance (ICD-10-PCS; 2022-05-24)
PROC: 30233N1 Transfusion of Nonautologous Red Blood Cells into Peripheral Vein, Percutaneous Approach (ICD-10-PCS; 2022-05-24)
PROC: 05H533Z Insertion of Infusion Device into Right Subclavian Vein, Percutaneous Approach (ICD-10-PCS; 2022-05-26)
PROC: B546ZZA Ultrasonography of Right Subclavian Vein, Guidance (ICD-10-PCS; 2022-05-26)
DX: S72.141A Displaced intertrochanteric fracture of right femur, initial encounter for closed fracture (principal); G93.41 Metabolic encephalopathy; I50.33 Acute on chronic diastolic (congestive) heart failure; J15.9 Unspecified bacterial pneumonia; N39.0 Urinary tract infection, site not specified; E22.2 Syndrome of inappropriate secretion of antidiuretic hormone; I48.20 Chronic atrial fibrillation, unspecified; I11.0 Hypertensive heart disease with heart failure; D69.6 Thrombocytopenia, unspecified; E78.5 Hyperlipidemia, unspecified; I25.10 Atherosclerotic heart disease of native coronary artery without angina pectoris; M35.3 Polymyalgia rheumatica; Z79.01 Long term (current) use of anticoagulants; Z95.1 Presence of aortocoronary bypass graft; Z87.891 Personal history of nicotine dependence; Z96.642 Presence of left artificial hip joint; Z95.2 Presence of prosthetic heart valve; R73.9 Hyperglycemia, unspecified; M85.80 Other specified disorders of bone density and structure, unspecified site; D64.89 Other specified anemias; T50.2X5A Adverse effect of carbonic-anhydrase inhibitors, benzothiadiazides and other diuretics, initial encounter; W18.30XA Fall on same level, unspecified, initial encounter; Y93.9 Activity, unspecified; Y92.89 Other specified places as the place of occurrence of the external cause; Z20.822 Contact with and (suspected) exposure to COVID-19
CPT/HCPCS: 36415; 70030-TC; 70450; 71045; 72170; 73502; 73503; 82533; 83735; 83930; 83935; 84100; 84300; 84443; 84484; 84550; 85018; 85025; 85730; 86850; 86900; 86901; 86920; 87086; 93005; 93307; 97161; A4649; A4663; A6209; C1713; G0378; J0330; J0690; J0696; J1100; J1170; J1200; J1815; J1885; J1940; J2060; J2270; J2405; J2543; J2920; J3370; J3490; J7040; J7512; P9016